=== PATIENT | male | born 1990 | race African-American/Black ===

== ENCOUNTER 2016-12-27 21:05 | Emergency (ER) | payer SELFPAY ==
--- NOTE | 2017-01-14 16:41 | ER ---
ADMIT: 12/27/2016 RM/LOC: ER [facility] MR#: [id number] [address] [id number] CHOL, CHOL D [address] [facility] [place] [address] Emergency Room Report SEX: M AGE: 26 : 1990 DATE: 12/27/2016 A 26-year-old, drinking alcohol, using drugs, ran from police, subsequently arrested, brought to half-way, then to the Emergency Department for medical clearance for half-way. See T-sheet for history and physical. The patient is medically cleared off to half-way. Gilberto Moore MD/ roque JOB #: [id number] CC: Howard Colon MD, Attending Physician Alexey Johnson MD, Family Physician
== END 2016-12-27 21:21 | disposition home or self-care (01) ==
LOC: ER 21:05
DX: Z02.89 Encounter for other administrative examinations (principal); F17.210 Nicotine dependence, cigarettes, uncomplicated